=== PATIENT | female | born 1960 | race Two or more races ===

== ENCOUNTER 2018-05-23 07:17 | Outpatient (CLI) | payer OTHER ==
[~2018-05-23 07:17] MED LIST: BUPROPION HCL150 M1; ECOTRIN81 MG; GABAPENTIN400 MG; HUMALOG100 U/M1; KOMBIGLYZE XR1 EAC2; LINZESS145 MCG; SIMVASTATIN20 MG; TOPROL XL25 M1; TRAMADOL HCL-AP1 TAB
== END 2018-05-23 07:49 | disposition home or self-care (01) ==
LOC: NUCLEAR 07:17
DX: I25.110 Atherosclerotic heart disease of native coronary artery with unstable angina pectoris (principal)
CPT/HCPCS: 78452; 93017; A9500; J0153

== ENCOUNTER 2021-08-09 10:42 | Outpatient (CLI) | payer OTHER | END 2021-08-09 10:46 | disposition home or self-care (01) | LOC: SONOGRAMA 10:42 | DX: E04.2 Nontoxic multinodular goiter (principal) ==

== ENCOUNTER 2021-10-31 07:11 | Outpatient (CLI) | payer OTHER | END 2021-10-31 07:16 | disposition home or self-care (01) | LOC: NUCLEAR 07:11 | DX: E04.2 Nontoxic multinodular goiter (principal) | CPT/HCPCS: 78012; A9528 ==

== ENCOUNTER 2021-11-01 07:06 | Outpatient (CLI) | payer OTHER | END 2021-11-01 07:07 | disposition home or self-care (01) | LOC: NUCLEAR 07:06 | DX: E04.2 Nontoxic multinodular goiter (principal) | CPT/HCPCS: 78012; A9528 ==

== ENCOUNTER 2021-12-07 09:31 | Outpatient (CLI) | payer OTHER | END 2021-12-07 09:32 | disposition home or self-care (01) | LOC: SONOGRAMA 09:31 | PROVIDERS: ATTEND Pathology Anatomic Pathology & Clinical Pathology | DX: E04.2 Nontoxic multinodular goiter (principal) ==

== ENCOUNTER 2022-11-07 13:00 | Outpatient (CLI) | payer OTHER | END 2022-11-07 14:27 | disposition home or self-care (01) | LOC: SONOGRAMA 13:00 | DX: E04.2 Nontoxic multinodular goiter (principal); Z12.31 Encounter for screening mammogram for malignant neoplasm of breast; E11.65 Type 2 diabetes mellitus with hyperglycemia; E11.22 Type 2 diabetes mellitus with diabetic chronic kidney disease; E78.2 Mixed hyperlipidemia; E66.9 Obesity, unspecified; I11.9 Hypertensive heart disease without heart failure; Z79.4 Long term (current) use of insulin ==

== ENCOUNTER 2022-11-27 07:20 | Outpatient (CLI) | payer OTHER | END 2022-11-27 07:23 | disposition home or self-care (01) | LOC: NUCLEAR 07:20 | DX: E11.65 Type 2 diabetes mellitus with hyperglycemia (principal); Z79.4 Long term (current) use of insulin; E11.22 Type 2 diabetes mellitus with diabetic chronic kidney disease; E78.2 Mixed hyperlipidemia; E66.9 Obesity, unspecified; I11.9 Hypertensive heart disease without heart failure; E04.2 Nontoxic multinodular goiter | CPT/HCPCS: 78014; A9528 ==

== ENCOUNTER 2022-11-28 07:11 | Outpatient (CLI) | payer OTHER | END 2022-11-28 07:17 | disposition home or self-care (01) | LOC: NUCLEAR 07:11 | DX: E04.2 Nontoxic multinodular goiter (principal); E11.65 Type 2 diabetes mellitus with hyperglycemia; Z79.4 Long term (current) use of insulin; E11.22 Type 2 diabetes mellitus with diabetic chronic kidney disease; E78.2 Mixed hyperlipidemia; E66.9 Obesity, unspecified; I11.9 Hypertensive heart disease without heart failure | CPT/HCPCS: 78014; A9528 ==

== ENCOUNTER → 2023-02-11 | Outpatient (CLI) | payer OTHER | END | disposition home or self-care (01) | LOC: SONOGRAMA 15:15 | PROVIDERS: ATTEND Pathology Anatomic Pathology & Clinical Pathology | DX: D34 Benign neoplasm of thyroid gland (principal); E04.9 Nontoxic goiter, unspecified ==